=== PATIENT | female | born 1990 | race Two or more races ===

== ENCOUNTER 2017-05-09 18:29 | Emergency (ER) | payer SELFPAY ==
--- NOTE | 2017-05-09 19:45 | ER Document Report ---
HPI - HPI Patient complains to provider of: headache Pain Level: 4 Context: 26 yo female c/o facial pain x 5 days, dizziness, runny nose. no fever Associated Symptoms: None Exacerbated by: Denies Relieved by: Denies - ROS Systems Reviewed and Negative: Yes All other systems reviewed and negative - CARDIOVASCULAR Cardiovascular: DENIES: Chest pain - DERM Skin Color: Normal Past Medical History - Social History Smoking Status: Never Smoker Chew tobacco use (# tins/day): No Frequency of alcohol use: None Drug Abuse: None Lives with: Family Family History: Reviewed & Not Pertinent - Medical History Medical History: Negative Renal/ Medical History: Denies: Hx Peritoneal Dialysis - Immunizations Hx Diphtheria, Pertussis, Tetanus Vaccination: Yes Vertical Provider Document - CONSTITUTIONAL Agree With Documented VS: Yes Exam Limitations: No Limitations General Appearance: WD/WN, No Apparent Distress - INFECTION CONTROL TRAVEL OUTSIDE OF THE [place] IN LAST 30 DAYS: No - HEENT HEENT: Atraumatic, PERRLA. negative: Tympanic Membrane Bulging - TMs dull bilat. + effusions bilat Notes: + tap tender over left maxillary sinus. - NECK Neck: Normal Inspection, Supple - RESPIRATORY Respiratory: Breath Sounds Normal, No Respiratory Distress O2 Sat by Pulse Oximetry: 99 - CARDIOVASCULAR Cardiovascular: Regular Rate, Regular Rhythm - GI/ABDOMEN Gastrointestinal: Abdomen Soft, Abdomen Non-Tender - MUSCULOSKELETAL/EXTREMETIES Musculoskeletal/Extremeties: MAEW, FROM, Non-Tender - NEURO Level of Consciousness: Awake, Alert, Appropriate - DERM Integumentary: Warm, Dry, No Rash Course - Vital Signs Vital signs: Temp Pulse Resp BP Pulse Ox 98.2 F 71 16 120/70 99 05/09/17 18:33 05/09/17 18:33 05/09/17 18:33 05/09/17 18:33 05/09/17 18:33 Discharge - Discharge Clinical Impression: Acute bacterial sinusitis Condition: Stable Disposition: HOME, SELF-CARE Instructions: Sinusitis ([facility]), Antibiotic Therapy ([facility]), Ibuprofen (General) ( [facility]) Additional Instructions: You have a sinus infection Take antibiotic as prescribed recommend Mucinex in addition to prescribed medications may take Motrin for discomfort drink lots of water follow up with your primary care if pain persists Prescriptions: Amox Tr/Potassium Clavulanate [Augmentin 875-125 Tablet] 1 tab PO BID 10 Days tablet Ibuprofen [Motrin 800 Mg Tablet] 800 mg PO Q6H #20 tablet
[2017-05-09 19:57] VITALS: BP 99/70
== END 2017-05-09 19:54 | disposition home or self-care (01) ==
LOC: ER 18:29
DX: J01.80 Other acute sinusitis (principal); B96.89 Other specified bacterial agents as the cause of diseases classified elsewhere; R51 Headache; R42 Dizziness and giddiness; R09.89 Other specified symptoms and signs involving the circulatory and respiratory systems
CPT/HCPCS: 99283